=== PATIENT | female | born 1990 | race African-American/Black ===

== ENCOUNTER 2017-10-24 13:02 | Emergency (ER) | payer OTHER ==
[2017-10-24 13:13] VITALS: BP 122/62; BMI 21.1
[2017-10-24 13:30] LABS: BILIRUBIN,URINE NEGATIVE (NEGATIVE); BLOOD/HEMOGLOBIN,URINE 1+ (NEGATIVE); GLUCOSE, URINE NEGATIVE (NEGATIVE); KETONES,URINE NEGATIVE (NEGATIVE); LEUKOCYTE ESTERASE ,URINE 1+ (NEGATIVE); NITRITES,URINE NEGATIVE (NEGATIVE); PH,URINE 6.5 (5.0 - 8.0); PROTEIN,URINE 1+ (NEGATIVE); UROBILINOGEN,URINE NORMAL (NORMAL)
[2017-10-24 13:40] LABS: APPEARANCE,URINE SLIGHTLY HAZY (CLEAR); COLOR,URINE YELLOW (YELLOW)
[2017-10-24 13:42] LABS: BACTERIA,URINE 1+ /HPF (NEGATIVE); MUCUS,URINE FEW /HPF (NEGATIVE); SQUAMOUS EPITHELIAL CELL,UR MANY /HPF (NEGATIVE)
--- NOTE | 2017-10-26 09:19 | DR.PREG ---
HPI - PCP Primary Care Physician: danielle - Chief Complaint Chief Complaint:: "32 weeks preg pt started hurting lastnight and it has contiuned this morning - Source History Provided: Patient - Mode of Arrival Mode of Arrival: Ambulatory - Timing Onset of Chief Complaint: 10/23/17 PMH - PMH Past Medical History: No Past Medical History: Anemia Past Surgical History: No - Family History History of Family Medical Conditions: No - Social History Does patient currently use any type of tobacco product: No Have you used tobacco products in the last 12 months: No Type of Tobacco Use: None Does any household member use tobacco: No Alcohol Use: None Do you use any recreational Drugs:: No Lives With: Family Lives Where: Home - infectious screening In the last 2 months have you had wt loss of >10#?: NO Have you had fever, night sweats or hemotysis?: No Have you traveled outside the country in the last 6 months?: No Isolation: Standard PE - Vital Signs Vitals: Temperature 98 F Pulse Rate 83 Respiratory Rate 18 Blood Pressure 122/62 O2 Sat by Pulse Oximetry 100 ROR - Labs Reviewed Laboratory: Specimen Type Random urine 10/24/17 13:22 Urine Color Yellow (YELLOW) 10/24/17 13:22 Urine Appearance Slightly hazy (CLEAR) 10/24/17 13:22 Urine pH 6.5 (5.0 - 8.0) 10/24/17 13:22 Ur Specific [place] 1.015 (1.000-1.030) 10/24/17 13:22 Urine Protein 1+ (NEGATIVE) 10/24/17 13:22 Urine Glucose (UA) Negative (NEGATIVE) 10/24/17 13:22 Urine Ketones Negative (NEGATIVE) 10/24/17 13:22 Urine Occult Blood 1+ (NEGATIVE) 10/24/17 13:22 Urine Nitrite Negative (NEGATIVE) 10/24/17 13:22 Urine Bilirubin Negative (NEGATIVE) 10/24/17 13:22 Urine Urobilinogen Normal (NORMAL) 10/24/17 13:22 Ur Leukocyte Esterase 1+ (NEGATIVE) 10/24/17 13:22 Urine RBC 5-10 /HPF (NONE SEEN) 10/24/17 13:22 Urine WBC 3-5 /HPF (NONE SEEN) 10/24/17 13:22 Ur Squamous Epith Cells Many /HPF (NEGATIVE) 10/24/17 13:22 Urine Bacteria 1+ /HPF (NEGATIVE) 10/24/17 13:22 Urine Mucus Few /HPF (NEGATIVE) 10/24/17 13:22 Ur Culture Indicated? No/not indicated 10/24/17 13:22 - Discharge Plan Disposition: 01 HOME, SELF-CARE Condition: Stable - Follow ups/Referrals Follow ups/Referrals: FARA MERCER [Primary Care Provider] - 3 days - Instructions Instructions: Coryell King Contractions, Pelvic Rest Additional Instructions: RETURN TO ER IF YOU FEEL CONTRACTIONS INCREASE IN FREQUENCY OR INTENSITY. RETURN TO ER IF BLEEDING OR LEAKING OCCURS. MAINTAIN PELVIC REST UNTIL FOLLOW UP WITH DOCTOR. STAY OFF FEET MUCH POSSIBLE.
== END 2017-10-24 14:28 | disposition home or self-care (01) ==
LOC: ER 13:17
DX: R10.84 Generalized abdominal pain (principal); Z3A.32 32 weeks gestation of pregnancy
CPT/HCPCS: 81001; 99284

== ENCOUNTER → 2017-11-07 | Outpatient (CLI) | payer SELFPAY ==
[2016-08-27 19:21] VITALS: BP 117/67
== END ==
LOC: RAD 13:49
PROVIDERS: ATTEND Specialist
DX: Z34.80 Encounter for supervision of other normal pregnancy, unspecified trimester (principal)

== ENCOUNTER → 2017-12-09 | Outpatient (CLI) | payer OTHER ==
[2017-12-09 08:12] LABS: BASOPHILS # (AUTO) 0.1 X10^3/uL (0.0-0.1); BASOPHILS % (AUTO) 0.9 % (0.2-1.0); EOSINOPHILS # (AUTO) 0.1 x10^3/uL (0.0-0.2); EOSINOPHILS % (AUTO) 1.2 % (0.9-2.9); HEMATOCRIT 24.8 % (36.0-47.0); HEMOGLOBIN 8.1 g/dL (12.0-16.0); LYMPHOCYTES # (AUTO) 1.6 X10^3/uL (1.3-2.9); LYMPHOCYTES % (AUTO) 23.6 % (21.0-51.0); MEAN CORPUSCULAR HEMOGLOBIN 20.4 pg (27.0-34.0); MEAN CORPUSCULAR HGB CONC 32.6 g/dL (33.0-35.0); MEAN CORPUSCULAR VOLUME 62.5 fL (80.0-100.0); MEAN PLATELET VOLUME 8.8 fL (7.4-11.0); MONOCYTES # (AUTO) 0.6 x10^3/uL (0.3-0.8); MONOCYTES % (AUTO) 8.4 % (0.0-13.0); NEUTROPHILS # (AUTO) 4.4 x10^3/uL (2.2-4.8); NEUTROPHILS % (AUTO) 65.9 % (42.0-75.0); PLATELET COUNT 239 X10^3/uL (150.0-450.0); RED BLOOD COUNT 3.96 X10^6/uL (3.5-5.4); RED CELL DISTRIBUTION WIDTH 16.8 % (11.6-16.5); WHITE BLOOD COUNT 6.6 X10^3/uL (3.6-10.0)
[2017-12-09 08:21] LABS: BILIRUBIN,URINE NEGATIVE (NEGATIVE); BLOOD/HEMOGLOBIN,URINE 1+ (NEGATIVE); GLUCOSE, URINE NEGATIVE (NEGATIVE); KETONES,URINE NEGATIVE (NEGATIVE); LEUKOCYTE ESTERASE ,URINE NEGATIVE (NEGATIVE); NITRITES,URINE NEGATIVE (NEGATIVE); PH,URINE 6.5 (5.0 - 8.0); PROTEIN,URINE 1+ (NEGATIVE); UROBILINOGEN,URINE NORMAL (NORMAL)
[2017-12-09 08:29] LABS: ANISOCYTOSIS 2+; HYPOCHROMASIA 2+; PLATELET MORPHOLOGY COMMENT NORMAL (NORMAL)
[2017-12-09 08:30] LABS: APPEARANCE,URINE CLEAR (CLEAR); COLOR,URINE YELLOW (YELLOW)
[2017-12-09 08:31] LABS: AMORPHOUS SEDIMENT,UR TRACE /HPF (NEGATIVE); BACTERIA,URINE TRACE /HPF (NEGATIVE); RBC,URINE 0-2 /HPF (NONE SEEN); SQUAMOUS EPITHELIAL CELL,UR MANY /HPF (NEGATIVE)
[2017-12-09 08:31] LABS: BLOOD UREA NITROGEN 8 mg/dL (7-18); CALCIUM 8.2 mg/dL (8.5-10.1); CARBON DIOXIDE 23.6 mmol/L (21-32); CHLORIDE 102 mmol/L (98-107); CREATININE 0.57 mg/dL (0.55-1.02); SODIUM 136 mmol/L (136-145); eGFR BLACK RACES > 60 (>60); eGFR NON BLACK RACES > 60 (>60)
== END ==
LOC: LAB 07:36
PROVIDERS: ATTEND Specialist
DX: Z01.818 Encounter for other preprocedural examination (principal); Z34.83 Encounter for supervision of other normal pregnancy, third trimester
CPT/HCPCS: 36415; 80048; 80307; 81001; 85025; 86592; 86850; 86900; 86901; G0434

== ENCOUNTER 2017-12-10 06:29 | Inpatient (IN) | payer OTHER ==
[~2017-12-10 06:29] MED LIST: D5 1/2 NS 1000 ML 1,000 ML IV ONE; D5 1/2 NS 1L W PITOCIN 20 UNITS/L 20 UNITS/1,000 ML BAG IV ONE; D5LR 1L W PITOCIN 10 UNITS/L 10 UNITS/1,000 ML BAG IV ONE; FENTANYL INJ 100 mcg ONE; LR 1000 ML IV 1,000 ML IV ONE; NAROPIN EPIDURAL 0.2% + FENTANYL 90MCG 60 ML EPI ONE; PITOCIN ONE
--- NOTE | 2017-12-10 07:08 | DR.OB ---
OB Quick Note - Assessment/Plan Assessment/Plan: L&D 12/10/17 at 7:00am S-No complaint. O-Afebrile,VSS VQE=640 with good LTV, +accel, no decel. CTX=occasional,mild CVX=3cm/75%/0/VTX AROM with clear fluid. IUPC and FSE placed. A-IUP at 38 5/7 weeks for induction Oligohydramnios P-Begin pitocin induction Anticipate
[2017-12-10] MEDS ORDERED: PHENERGAN INJ 25 MG IV PRN ×3 (08:02→12:21)
[2017-12-10] MEDS ORDERED: NUBAIN INJ 200 MG VIAL MULTIDOSE IVP PRN (08:02)
[2017-12-10] MEDS ORDERED: PITOCIN IVP ONE (08:02)
[2017-12-10] MEDS ORDERED: MORPHINE SULFATE INJ 2 MG INJ IVP PRN (08:02)
[2017-12-10] MEDS ORDERED: D5 1/2 NS 1000 ML 1,000 ML IV SCH (08:02)
[2017-12-10] MEDS ORDERED: D5LR 1L W PITOCIN 10 UNITS/L 10 UNITS/1,000 ML BAG IV PRN (08:02)
[2017-12-10] MEDS ORDERED: REGLAN INJ 10 MG VIAL IVP PRN ×2 (08:02→12:21)
[2017-12-10] MEDS ORDERED: LR 1000 ML IV 1,000 ML IV ONE (08:08)
[2017-12-10] MEDS ORDERED: FENTANYL INJ 100 mcg EPI ONE (08:08)
[2017-12-10] MEDS ORDERED: NAROPIN EPIDURAL 0.2% 60 ML with FENTANYL INJ 100 mcg 90 MCG IVP SCH ×2 (09:00)
[2017-12-10] MEDS ORDERED: MOTRIN TAB 800 MG PO PRN (11:23)
[2017-12-10] MEDS ORDERED: D5 1/2 NS 1000 ML 1,000 ML with PITOCIN 20 UNITS IV SCH ×4 (12:00→20:00)
[2017-12-10] MEDS ORDERED: AMBIEN PO PRN (12:21)
[2017-12-10] MEDS ORDERED: MILK OF MAGNESIA PO PRN (12:21)
[2017-12-10] MEDS ORDERED: ADACEL TDaP IM ONE (12:21)
[2017-12-10] MEDS ORDERED: DERMOPLAST SPRAY TOP PRN (12:21)
--- NOTE | 2017-12-10 14:11 | DR.OB ---
OB Quick Note - Assessment/Plan Assessment/Plan: Delivery Note INSURANCE BUSINESS ANALYST 12/10/17 at 11:14am Patient complete and pushing. Head delivered over intact perineum. Nuchal cord x 1 reduced. Nose and mouth bulb suctioned. Body delivered over intact perineum. Cord clamped x 2 and cut. Infant handed to attendant. Cord sent for gases. Viable female , VTX/OA, wt=6'0" and 9/10, stable to NBN. Placenta delivered spontaneously / intact / 3 vessel cord. No CVX / vaginal / perineal tears. Infant stable to NBN. Mother stable to RR. EBL= 300cc.
[2017-12-10] MEDS ORDERED: BENADRYL INJ 50 MG VIAL IVP PRN ×2 (15:23→15:40)
[2017-12-10] MEDS: FERROUS GLUCONATE PO SCH ×2 (15:50→18:05)
[2017-12-10] MEDS: MOTRIN TAB 800 MG PO PRN (18:22)
[2017-12-10] MEDS: ZANTAC PO SCH (21:54)
[2017-12-11] MEDS: MOTRIN TAB 800 MG PO PRN (03:30)
[2017-12-11 05:54] LABS: HEMOGLOBIN 7.3 g/dL (12.0-16.0)
[2017-12-11 06:02] LABS: HEMATOCRIT 22.2 % (36.0-47.0)
[2017-12-11] MEDS: FERROUS GLUCONATE PO SCH ×2 (06:04→17:07)
[2017-12-11] MEDS ORDERED: PRENATAL PLUS PO SCH (09:00)
[2017-12-11] MEDS: ZANTAC PO SCH (09:00)
[2017-12-11 16:44] VITALS: BP 111/71
== END 2017-12-11 17:35 | disposition home or self-care (01) | DRG 775 ==
LOC: LD 06:29 → MED/SURG 12:22
PROVIDERS: ADMIT Specialist; ATTEND Specialist
PROC: 10E0XZZ Delivery of Products of Conception, External Approach (ICD-10-PCS; principal; 2017-12-10)
PROC: 10907ZC Drainage of Amniotic Fluid, Therapeutic from Products of Conception, Via Natural or Artificial Opening (ICD-10-PCS; 2017-12-10)
PROC: 3E033VJ Introduction of Other Hormone into Peripheral Vein, Percutaneous Approach (ICD-10-PCS; 2017-12-10)
PROC: 00HU33Z Insertion of Infusion Device into Spinal Canal, Percutaneous Approach (ICD-10-PCS; 2017-12-10)
DX: O41.03X0 Oligohydramnios, third trimester, not applicable or unspecified (principal); Z37.0 Single live birth; O99.013 Anemia complicating pregnancy, third trimester; D50.8 Other iron deficiency anemias; Z3A.38 38 weeks gestation of pregnancy
CPT/HCPCS: 36415; 85014; 85018; A4222; J1200; J2590; J3010; J7042; J7120